=== PATIENT | male | born 1955 | race Caucasian/White ===

== ENCOUNTER → 2016-11-06 12:09 | Outpatient (CLI) | payer MEDICAID ==
[2016-11-07 08:25] LABS: ANION GAP 12.3 mmol/L (8-16); CALCIUM 9.1 mg/dL (8.5-10.1); CARBON DIOXIDE 28.7 mmol/L (21.0-32.0); CHOL - HDL RATIO 3.6 ratio (2.3-4.9); CREATININE - SERUM 1.1 mg/dL (0.6-1.3); LDL-HDL RATIO 1.2 ratio (1.5-3.5); MAGNESIUM - SERUM 2.3 mg/dL (1.8-2.4); T4 THYROXINE 6.7 ug/dL (4.7-13.3); THYROID STIMULATING HORMONE 1.13 uIU/mL (0.36-3.74)
== END | disposition home or self-care (01) ==
LOC: D.LAB 12:09
PROVIDERS: Chiropractor
DX: E78.5 Hyperlipidemia, unspecified (principal); R53.82 Chronic fatigue, unspecified

== ENCOUNTER → 2016-11-20 14:14 | Outpatient (CLI) | payer MEDICAID ==
[2016-11-20 15:24] LABS: HELICOBACTER PYLORI IGG NEGATIVE (NEGATIVE)
== END | disposition home or self-care (01) ==
LOC: D.LAB 14:14
PROVIDERS: Chiropractor
DX: R53.82 Chronic fatigue, unspecified (principal)

== ENCOUNTER → 2017-04-13 11:34 | Outpatient (CLI) | payer MEDICAID | END | disposition home or self-care (01) | LOC: D.RT 11:00 | DX: R06.02 Shortness of breath (principal) ==

== ENCOUNTER → 2019-02-26 10:30 | Outpatient (CLI) | payer MEDICARE ==
--- NOTE | 2019-03-03 09:50 | ST ---
PATIENT:MATIAS HAGEN MEDICAL RECORD: [id number] SEX: M LOCATION:[facility] ORDER #: ADMISSION DATE: 02/26/19 AGE OF PATIENT: 63 REFERRING PHYSICIAN: INTERPRETING PHYSICIAN: JENNIFER SCHUMACHER MD DATE OF SERVICE: 02/26/2019 PROCEDURE: Nuclear stress test. INDICATION: Angina, abnormal ECG, hypertension, and hyperlipidemia. He was exercised on standard Ulises protocol for 10 minutes achieving 100% max target heart rate response with 32 mCi of sestamibi injected at peak stress, 11 mCi used previously for rest images. FINDINGS: Gated SPECT reveals a decreased ejection fraction at 39% with decreased thickening and brightening throughout the inferior segment. SPECT imaging: Cardiolite was used as myocardial perfusion agent. There is a mixed perfusion defect inferiorly as well as laterally. This includes the basal, mid, apical, inferior segments, basal lateral, mid lateral segments. This is partially fixed, partially reversible. The amount of myocardium involved is large, the amount of reversibility is moderate. OVERALL IMPRESSION: 1. This is an intermediate risk to high risk abnormal nuclear stress test with reversible ischemia throughout the inferior and lateral distribution. 2. Gated SPECT reveals a decreased ejection fraction at 39%, would suggest cardiac catheterization as a followup study. TRANSINT:[id number] Voice Confirmation ID: [id number] DOCUMENT ID: [id number] JENNIFER SCHUMACHER MD at 0950 CC: CLYDE COYLE MD [id number] DICTATION DATE: 02/26/19 1642 CEMENT TESTER ASSISTANT: 02/27/19 0859 DEP CLI 02/26/19 [place] [id number] [place] [id number]
--- NOTE | 2019-03-03 14:16 | EC ---
PATIENT:MATIAS HAGEN DATE OF SERVICE: 02/26/19 SEX: M MEDICAL RECORD: [id number] DATE OF : [birth year] [facility] AGE OF PATIENT: 63 ADMISSION DATE: 02/26/19 REFERRING PHYSICIAN: INTERPRETING PHYSICIAN: ELA MORELOS MD ECHOCARDIOGRAM REPORT ECHO CHARGES 4 ECHO COMPLETE Date: 02/26/19 CLINICAL DIAGNOSIS: HTN/ABNORMAL STRESS ECHOCARDIOGRAPHIC MEASUREMENTS (adult normal given) AC root (d.<3.7cm) 4.4 cm LV Septum d (<1.2 cm> 1.2 cm Valve Excursion 2.6 cm LV Septum (systole) 1.7 cm Left Atria (s.<4.0cm> 4.5 cm LVPW d(<1.2cm) 1.3 cm RV (d.<2.3cm) 3.7 cm LVPW (sytole) 1.8 cm LV diastole(<5.6CM) 7.6 cm MV E-F(>70mm/sec) cm LV systole 5.3 cm LVOT Diameter 2.5 cm MV exc.(>10mm) cm Est.ejection fraction (50-75%) % DOPPLER: LVIT cm/sec A 31.0 cm/sec E 57.0 cm/sec LA cm/sec RVSP 32.0 mmHg LVOT 74.0 cm/sec AOP1/2T m/s Asc. Ao 117 cm/sec RVOT 54.0 cm/sec RA cm/sec PA 104 cm/sec AV Gradient Peak 5.5 mmHg AV Mean 2.9 mmHg AV Area 3.0 cm MV Gradient Peak 3.4 mmHg MV Mean 0.96 mmHg MV Area cm COMMENTS: OP - HC Casework Manager: 1 ROBERTO RONOE Recycling Operations Manager: 3 Dr. Garcia TAPE# PACS Pericardial Effusion N DATE OF SERVICE: Adequate 2-D echo, color-flow and spectral Doppler, and M-mode. Borderline LVH. LV internal dimension is normal. Wall motion is normal. EF is greater than or equal to 55%. Aortic valve is tricuspid. No evidence of stenosis by Doppler interrogation. Left atrium is dilated at 4.5 cm. Mitral valve shows no prolapse. Mild MR. Right-sided chambers are grossly normal. Trace TR. ECHOCARDIOGRAM REPORT [id number] MATIAS HAGEN TRANSINT:[id number] Voice Confirmation ID: [id number] DOCUMENT ID: [id number] ELA MORELOS MD at 1416 CC: [id number] DICTATION DATE: 02/27/19 1344 MASTER AUTOMOTIVE TECHNICIAN: 02/27/19 1533 [facility] CLI 02/26/19 [place] [id number] [place] [id number]
== END | disposition home or self-care (01) ==
LOC: D.HCCARDIO 10:30
PROVIDERS: ATTEND Internal Medicine Interventional Cardiology
DX: I10 Essential (primary) hypertension (principal)

== ENCOUNTER 2019-03-11 12:04 | Outpatient (CLI) | payer MEDICARE ==
[~2019-03-11] VITALS: Ht 198.1 cm; Wt 109.1 kg
--- NOTE | ~2019-03-11 | OP ---
PATIENT NAME: MATIAS HAGEN MEDICAL RECORD: [id number] :51 LOCATION:[facility] ADMISSION DATE: SURGEON: ELA MORELOS MD DATE OF OPERATION: 03/11/2019 PROCEDURE: Left heart catheterization, selective coronary angiography, right femoral artery approach. CATHETERS: A 5-German sheath, 5/4 left and right Robert, 5/4 pig. The procedure was well tolerated. The patient was returned to the sheikh. Sheath was removed. We proceeded immediately to DEPUTY REGISTER OF DEEDS. FINDINGS: Left ventriculography in 30-degree CERVANTES view: Normal wall motion and normal systolic function. CORONARY ANATOMY: LEFT MAIN: Left main is free of disease. LAD: Has discrete stenosis and it is just after the first diagonal. CIRCUMFLEX: Circumflex free of disease. RIGHT CORONARY ARTERY: Has an 80% stenosis in its mid portion. IMPRESSION AND PLAN: Staged intervention to LAD today, right at a later date. DESCRIPTION OF PROCEDURE: A 5-German was exchanged for a long 6-German sheath due to tortuosity of the iliac arteries. XB LAD guide catheter provided good guide catheter support followed by 300 cm Whisper wire placed across the tightly occluded LAD down this portion of the vessel. Stent deployed was a 3.5 x 50 mm Etters drug-eluting stent up to 14 atmospheres for 45 seconds. Final angiography shows excellent resolution of 80% stenosis with no significant residual. CARLOS flow was 3 throughout the procedure. IMPRESSION: SMALL BATTERY PLATE ASSEMBLER and stenting to the LAD. PLAN: Intervention to the right at a later date. TRANSINT:[id number] Voice Confirmation ID: [id number] DOCUMENT ID: [id number] ELA MORELOS MD CC: [id number] DICTATION DATE: 03/11/19 1516 DIAMOND SELECTOR: 03/11/19 1601 DEP CLI 03/11/19 [place] [id number] [place] [id number]
--- NOTE | ~2019-03-11 | HEMODYNAMI ---
PATIENT:MATIAS HAGEN MEDICAL RECORD: [id number] : 51 LOCATION:[facility] ADMISSION DATE: 03/11/19 Generatedon:03/11/201915:32 Patient name: MATIAS HAGEN Patient #: [id number] SSN: : 1955 Date of study: 03/11/2019 Page: Of Hemodynamic Procedure Report Patient Data Patient Demographics Procedure consent was obtained First Name: MATIAS Gender: Male Last Name: XIAO : 1955 [facility] Initial: GEETA Age: 63 year(s) Patient #: [id number] Race: Unknown Additional ID: [id number] Contact details Address: [address] [address] State: [place] City: [place] Zip code: [address] Past Medical History Allergies: No known allergies Admission Admission Data Admission Date: 03/11/2019 Admission Time: 12:04 Weight (lbs.): 240.31 Weight (kg.): 109 Lab Results Lab Result Date: 03/11/2019 Lab Result Time: 0:00 Biochemistry Name Units Result Min Max BUN mg/dl 17 --(---*)-- 7 18 Creatinine mg/dl 1 --(--*-)-- 0.6 1.3 eGFR ml/min 79.95109 *-(----)-- 90 120 NONAFRICAN CBC Name Units Result Min Max Hematocrit % 48.6 --(--*-)-- 42 54 Hemoglobin g/dl 16.8 --(---*)-- 13.5 17.5 Procedure Procedure Types Cath Procedure Diagnostic Procedure [facility] w/Coronaries Sedation Charges Moderate Sedation up to 15 minutes PCI Procedure Coronary Stent Coronary Stent Initial Procedure Description Procedure Date Procedure Date: 03/11/2019 Procedure Start Time: 14:44 Procedure End Time: 15:22 Procedure Staff Name Function Thee Carter RT Scrub Klaus Moody MD Performing Physician Mason Witt RN Nurse Carey Love RT Monitor Cely Liriano RT Scrub Procedure Data Cath Procedure Fluoroscopy Diagnostic fluoroscopy Total fluoroscopy Time: 6 time: 6 min min Diagnostic fluoroscopy Total fluoroscopy dose: dose: 1100 mGy 1100 mGy Contrast Material Contrast Material Type Amount (ml) Isovue 300 126 Entry Location Entry Primary Successful Side Size Upsize Upsize Entry Closure Succes sful Closure Location (Fr) 1 (Fr) 2 (Fr) Remarks Device Remarks Radial Right 6 Fr artery Short Femoral Right 5 Fr 6 Fr Exoseal artery Long Estimated blood loss: 10 ml Diagnostic catheters Device Type Used For End Catheter Placement DIAGNOSTIC [place] 110cm 5 Procedure Fr catheter ([id number]) MULTIPACK JL 4.0 5Fr Procedure catheter MULTIPACK 3DRC 5Fr Procedure catheter DIAGNOSTIC AR MOD 5Fr Procedure Catheter ([id number]) MULTIPACK Pigtail 5 Fr Procedure catheter Procedure Complications No complications Procedure Medications Medication Administration Route Dosage 0.9% NaCl I.V. 100 ml/hr Oxygen etCO2 Nasal cannula 2 l/min Heparin Flush Bag added to field 2 bags (1000units/500ml NS) Lidocaine 2% added to field 20 Radial Cocktail added to field 1 syringe (Verapamil 2mg/Nitro 400mcg/Heparin 1500units) Versed I.V. 2 mg Fentanyl I.V. 100 mcg Radial Cocktail I.A. 1 syringe (Verapamil 2mg/Nitro 400mcg/Heparin 1500units) Versed I.V. 2 mg Fentanyl I.V. 50 mcg Heparin Bolus I.V. 5000 units Integrilin (Bolus I.V. 9.5 ml 2mg/ml) Integrilin (Bolus wasted 0.5 ml 2mg/ml) Fentanyl I.V. 50 mcg Plavix P.O. 600 mg Zofran I.V. 4 mg Hemodynamics Rest HGB: 16.8 (g/dl) Heart Rate: 72 (bpm) Pressure Samples Time Site Value (mmHg) Purpose Heart Use Rate(bpm) 14:58 LV 123/6,8 Snapshot 60 14:59 LV 125/7,9 Snapshot 59 Gradients Valve Time Site Site Mean SEP/DFP Peak To Heart Use 1 2 (mmHg) (sec/min) Peak Rate (mmHg) (bpm) Aortic 14:59 LV AO 59 Snapshots Pre Cath Intra NCS Post Cath Vital Signs Time Heart Resp SPO2 etCO2 NIBP (mmHg) Rhythm Pain Sedation Rate (ipm) (%) (mmHg) Status Level (bpm) 14:32:23 73 10 100 0 147/89(120) NSR 0 (11) 10(A) , No pain 14:36:37 65 17 100 35.2 132/81(116) NSR 0 (11) 10(A) , No pain 14:40:44 60 14 100 40.4 136/83(113) NSR 0 (11) 10(A) , No pain 14:44:56 56 20 100 38.9 136/76(96) NSR 0 (11) 10(A) , No pain 14:49:10 70 19 97 41.2 117/72(91) NSR 0 (11) 10(A) , No pain 14:53:14 61 15 95 38.2 126/76(98) NSR 0 (11) 10(A) , No pain 14:57:24 57 18 98 41.9 125/74(102) NSR 0 (11) 10(A) , No pain 15:01:34 57 16 99 41.9 128/71(92) NSR 0 (11) 10(A) , No pain 15:05:44 58 11 99 37.4 125/75(98) NSR 0 (11) 10(A) , No pain 15:09:52 61 15 99 19.4 120/76(96) NSR 0 (11) 10(A) , No pain 15:13:57 58 18 98 42.6 124/77(98) NSR 0 (11) 10(A) , No pain 15:18:05 56 10 100 21.7 120/79(99) NSR 0 (11) 10(A) , No pain 15:22:07 60 9 31.4 124/84(107) NSR 0 (11) 10(A) , No pain Medications Time Medication Route Dose Verified Delivered Reason Not es Effectiveness by by 14:32:04 0.9% NaCl I.V. 100 Mason Mason Per physician ml/hr Eduar Witt RN RN 14:32:14 Oxygen etCO2 2 l/min Mason Mason for low 02 sats Nasal Eduar Witt cannula RN RN 14:32:24 Heparin Flush added 2 bags Mason Mason used for Bag to Eduar Witt procedure (1000units/500ml field RN RN NS) 14:32:34 Lidocaine 2% added 20ml Mason Mason for local to vial Lorigan Lorigan anesthetic field HAYWOOD RN 14:32:43 Radial Cocktail added 1 Mason Mason used for (Verapamil to syringe Lorigan Lorigan procedure 2mg/Nitro field HAYWOOD RN 400mcg/Hepari 14:44:15 Versed I.V. 2 mg Mason Mason for sedation Eduar Witt RN RN 14:44:23 Fentanyl I.V. 100 mcg Mason Mason for sedation Eduar Witt RN RN 14:46:06 Radial Cocktail I.A. 1 Mason Klaus for (Verapamil syringe Lorigan Fransisco vasodilation 2mg/Nitro CHASTITY MARIN 400mcg/Hepari 14:46:19 Versed I.V. 2 mg Mason Mason for sedation Eduar Witt RN RN 14:46:26 Fentanyl I.V. 50 mcg Mason Mason for sedation Eduar Witt RN RN 14:59:29 Heparin Bolus I.V. 5000 Mason Mason for units Eduar Witt anticoagulation RN RN 15:00:35 Integrilin I.V. 9.5 ml Mason Mason for (Bolus 2mg/ml) Eduar Witt antiplatelet RN RN therapy 15:00:46 Integrilin wasted 0.5 ml Mason Mason to sharp's (Bolus 2mg/ml) Eduar Witt RN RN 15:03:04 Fentanyl I.V. 50 mcg Mason Mason for sedation Eduar Witt RN RN 15:12:43 Plavix P.O. 600 mg Mason Mason for Eduar Witt antiplatelet RN RN therapy 15:29:47 Zofran I.V. 4 mg Mason Mason for nausea Eduar Witt RN sustainable systems analyst Log Time Note 14:18:21 Mason Witt RN sent for patient. Start room use. 14:18:22 Diagnostic Cath status Elective 14:18:23 Time tracking: Regular hours (M-F 7:00 - 5:00) 14:18:27 Plan of Care:Hemodynamics will remain stable., Cardiac rhythm will remain stable., Comfort level will be maintained., Respiratory function will remain adequate., Patient/ family verbilizes understanding of procedure., Procedure tolerated without complication., Recovers from procedure without complications.. 14:18:29 Signed procedure consent form obtained from patient. 14:21:51 Patient Weight : 240.31 lbs 14:22:03 Patient allergic to No known allergies 14::34 Lab Result : Hemoglobin 16.8 g/dl 14::34 Lab Result : Hematocrit 48.6 % 14::34 Lab Result : eGFR NONAFRICAN 79.42427 ml/min 14::34 Lab Result : BUN 17 mg/dl 14::34 Lab Result : Creatinine 1 mg/dl 14:23:13 Patient received from Pre/Post Procedure Room to CCL 2 Alert and oriented. Tansferred to table in Supine position. 14:23:14 Correct patient and procedure confirmed by team. 14:23:14 Warm blankets applied, and bennett hugger turned on for patient comfort. 14:23:15 ECG and BP/O2 sat monitors applied to patient. 14:31:19 Vital chart was started 14:32:04 0.9% NaCl 100 ml/hr I.V. was administered by Mason Witt RN; Per physician; 14:32:14 Oxygen 2 l/min etCO2 Nasal cannula was administered by Mason Witt RN; for low 02 sats; 14:32:24 Heparin Flush Bag (1000units/500ml NS) 2 bags added to field was administered by Mason Witt RN; used for procedure; 14:32:34 Lidocaine 2% 20ml vial added to field was administered by Mason Witt RN; for local anesthetic; 14:32:43 Radial Cocktail (Verapamil 2mg/Nitro 400mcg/Heparin 1500units) 1 syringe added to field was administered by Mason Witt RN; used for procedure; 14:34:37 Baseline sample Acquired. 14:34:40 Rhythm: sinus rhythm 14:34:41 Full Disclosure recording started 14:34:47 Pre-procedure instructions explained to patient. 14:34:47 H&P Date Dictated: 03/05/2019 Within 30 days and on chart., H&P Addendum completed by physician on day of procedure. (MUST COMPLETE FOR ALL OUTPATIENTS). 14:34:48 Pre-op teaching completed and patient verbalized understanding. 14:34:49 Family in patients room. 14:34:51 Patient NPO since Midnight. 14:34:53 Is patient on blood thinner?No 14:34:57 Patient diabetic? No. 14:35:02 Previous problem with sedation/anesthesia? No ? 14:35:03 Snore? Yes 14:35:04 Sleep apnea? Yes 14:35:05 Opens mouth fully? Yes 14:35:05 Deviated septum? No 14:35:07 Sticks out tongue? Yes 14:35:09 Airway obstruction? No ? 14:35:11 Dentures? No ? 14:35:13 Pre procedure: right dorsailis pedis pulse 2+ Normal; easily identifiable; not easily obliterated 14:35:20 Modified Julius's test Ulnar < 7 seconds 14:35:26 Patient pain scale 0/10 ?. 14:35:30 IV patent on arrival in left hand with 0.9% NaCl at [facility]. 14:35:33 Lab results completed and on chart. 14:35:35 Right Radial & Right Groin area was prepped with chlora-prep and draped in sterile fashion 14:35:36 Sharps counted by scrub and verified by R.N. 14:35:36 Alarms reviewed by R. N. 14:35:39 Use device set Radial Dx or PCI 14:35:41 ACIST Syringe (09323) opened to sterile field. 14:35:42 Bag Decanter (2002S) opened to sterile field. 14:35:43 Tegaderm 4 x 4 (1626W) opened to sterile field. 14:35:43 ACIST Manifold (64872) opened to sterile field. 14:35:43 ACIST Hand Control (19568) opened to sterile field. 14:35:46 Medline Cath Pack ([id number]) opened to sterile field. 14:35:47 MBrace Wrist Support ([id number]) opened to sterile field. 14:35:50 EMERALD Guide Wire (270-116) opened to sterile field. 14:35:50 SHEATH 6FR Slender (75-5461) opened to sterile field. 14:43:22 Final Timeout: patient, procedure, and site verified with staff and physician. All members of the team are in agreement. 14:43:22 --------ALL STOP TIME OUT------ 14:43:23 Right Radial & Right Groin site verified by team. 14:43:26 Fire Safety Assessment: A--An alcohol-based skin anteseptic being used preoperatively., C--Open oxygen or nitrous oxide is being used., D--An ESU, laser, or fiber-optic light is being used. 14:43:28 Physical assessment completed. ASA score P 2 - A patient with mild systemic disease as per Klaus Moody MD. 14:43:45 2) 60-89 Mildly reduced kidney function, and other findings (as for stage 1) point to kidney disease. 14:43:51 Maximum allowable contrast does (3.7 X eGFR X 0.75)222 ml. 14:43:54 Sedation plan: IV Moderate Sedation Medication:Versed, Fentanyl 14:44:15 Versed 2 mg I.V. was administered by Mason Witt RN; for sedation; 14:44:19 Procedure started. 14:44:23 Fentanyl 100 mcg I.V. was administered by Mason Witt RN; for sedation; 14:44:37 Local anesthetic to right radial artery with Lidocaine 2% by Klaus Moody MD.INITIAL ACCESS ONLY 14:45:03 A 6 Fr Short sheath was inserted into the Right Radial artery 14:46:06 Zero performed for pressure channel P1 14:46:06 Radial Cocktail (Verapamil 2mg/Nitro 400mcg/Heparin 1500units) 1 syringe I.A. was administered by Klaus Moody MD; for vasodilation; 14:46:19 Versed 2 mg I.V. was administered by Mason Witt RN; for sedation; 14:46:26 Fentanyl 50 mcg I.V. was administered by Mason Witt RN; for sedation; 14:46:28 A DIAGNOSTIC [place] 110cm 5 Fr catheter (310605) was advanced over the wire and used for Procedure. 14:47:22 GLIDE WIRE ANGLE 260cm (AF7134) opened to sterile field. 14:49:04 UNABLE TO ENGAGE CATH AROUND AORTA. WILL PROCEED TO FEMORAL 14:49:21 SHEATH 5FR [place] (INZ787) opened to sterile field. 14:49:25 Use device set Multipack Set 14:49:27 DIAGNOSTIC Multipack 5Fr catheter set (LQ7310) opened to sterile field. 14:49:35 Local anesthetic to right femoral artery with Lidocaine 2% by Klaus Moody MD.ADDITIONAL ACCESS 14:50:27 A 5 Fr sheath was inserted into the Right Femoral artery 14:52:00 A MULTIPACK JL 4.0 5Fr catheter was advanced over the wire and used for Procedure. 14:52:55 LCA angiography performed. 14:52:57 Catheter removed. 14:53:30 A MULTIPACK 3DRC 5Fr catheter was advanced over the wire and used for Procedure. 14:54:59 Catheter removed. 14:55:20 SHEATH 6FR [place] (AUK997) opened to sterile field. 14:55:21 WHISPER 300cm guide wire ([id number]) opened to sterile field. 14:55:21 INFLATOR Merit BasixCompak (YP7549) opened to sterile field. 14:56:04 SHEATH 6FR Brite Tip 35cm (835590I) opened to sterile field. 14:56:05 Sheath upsized to a 6 Fr Long. 14:56:24 A DIAGNOSTIC AR MOD 5Fr Catheter ([id number]) was advanced over the wire and used for Procedure. 14:58:05 RCA angiography performed. 14:58:08 Catheter removed. 14:58:17 A MULTIPACK Pigtail 5 Fr catheter was advanced over the wire and used for Procedure. 14:58:30 LV gram done using CERVANTES 14:58:32 Injector settings: Ml/sec: 10, Volume: 20, 14:59:15 LV hemodynamics recorded. 14:59:18 EF : 50 % 14:59:29 Heparin Bolus 5000 units I.V. was administered by Mason Witt RN; for anticoagulation; 15:00:00 Catheter removed. 15:00:24 GUIDE 6FR XBLAD 4.0 catheter ([id number]) opened to sterile field. 15:00:35 Integrilin (Bolus 2mg/ml) 9.5 ml I.V. was administered by Mason Witt RN; for antiplatelet therapy; 15:00:46 Integrilin (Bolus 2mg/ml) 0.5 ml wasted was administered by Mason Witt RN; to sharp's; 15:01:14 6 Fr XBLAD 4 guide catheter was inserted over the wire 15:02:55 WHISPER 300 wire advanced. 15:03:04 Fentanyl 50 mcg I.V. was administered by Mason Witt RN; for sedation; 15:04:20 Wire advanced across lesion. 15:05:25 Place stent Inflation Number: 1 A CAM OTW 3.5 x 18 stent ([id number]) was prepped and advanced across the Mid LAD . The stent was deployed at 12 GRISEL for 0:15 (min:sec) . 15:05:41 Stent catheter was removed intact over wire. 15:05:42 Guide catheter removed. 15:05:42 Wire removed. 15:06:15 LONG SHEATH EXCHANGED FOR SHORT SHEATH 15:06:37 EXOSEAL 6Fr (EX600) opened to sterile field. 15:07:31 TR BAND Standard ([id number]) opened to sterile field. 15:08:24 Sheath removed intact; hemostasis achieved with Exoseal to the Right Femoral artery. 15:08:56 Procedure ended.(Physican Out) 15:10:13 Fluoroscopy time 06.00 minutes. 15:10:17 Fluoroscopy dose: 1100 mGy 15:10:17 Flurop Dose total: 1100 15:10:20 Contrast amount:Isovue 300 126ml. 15:10:21 Sharps counted by scrub and verified by R.N. 15:10:24 Post-op/insertion site Right Femoral artery dressed using a 4 x 4 and Tegaderm. 15:10:56 Post-procedure physical assessment completed. ASA score P 2 - A patient with mild systemic disease as per Klaus Moody MD. 15:10:59 Post procedure rhythm: sinus bradycardia 15:12:12 Estimated blood loss: 10 ml 15:12:19 Patient needs reinforcement of post procedure teaching. 15:12:19 Post procedure instruction explained to patient.Patient verbalizes understanding. 15:12:43 Plavix 600 mg P.O. was administered by Mason Witt RN; for antiplatelet therapy; 15:13:04 Procedure type changed to Cath procedure, Diagnostic procedure, LHC, LHC w/Coronaries, Sedation Charges, Moderate Sedation up to 15 minutes, PCI procedure, Coronary Stent, Coronary Stent Initial 15:16:45 TR band inflated with 11cc of air. 15:16:50 FEMSTOP Gold (M30702) opened to sterile field. 15:16:58 Femstop placed over the right femoral artery at 140 mmHg. Hemostasis achieved. 15:20:17 Procedure and supply charges have been captured, reviewed, submitted and are correct. 15:20:20 Procedure Complication : No complications 15:22:32 See physician's report for complete and final results. 15:22:32 Vital chart was stopped 15:22:34 Report given to Pre/Post Procedure Room. 15:22:36 Patient transfered to Pre/Post Procedure Room with Bed. 15:22:37 Full Disclosure recording stopped 15:22:37 Procedure ended. 15:22:41 End room use (Document Last) 15:29:47 Zofran 4 mg I.V. was administered by Mason Witt RN; for nausea; Intervention Summary Intervention Notes Time ActionType Lesion and Equipment Action# Pressure Duration Attributes Used 15:05:25 Place stent Mid LAD CAM OTW 3.5 1 12 00:15 x 18 stent ([id number]) Device Usage Item Name Manufacture Quantity Catalog Hospital Part Current Mini mal Lot# / Number Charge Number Stock Stock Serial# Code ACIST Syringe Acist 1 85527 644252 188933 292054 20 (07447) Medical Systems Inc Bag Decanter Microtek 1 2001S 574720 87954 871838 5 (2001S) Medical Inc. ACIST Hand Acist 1 54040 242507 247678 274989 5 Control Medical (76765) Systems Inc ACIST Acist 1 81032 269551 135982 126446 5 Manifold Medical (84498) Systems Inc Tegaderm 4 x 3M 1 1626W 601686 844740 106039 5 4 (1626W) Medline Cath Medline 1 [id number] 412941 19791 532729 5 Pack (GUMD93285) MBrace Wrist Advanced 1 140-0250-00 471579 45284 544875 5 Support Vascular (882798111) Dynamics SHEATH 6FR Terumo 1 [id number] 326412 264488 556407 5 Slender (80-1060) EMERALD Guide Cardinal 1 502-455 072432 082530 397282 5 Wire Health (502-455) DIAGNOSTIC Terumo 1 40-5013 695231 370621 222204 5 [place] 110cm 5 Fr catheter (424491) GLIDE WIRE Terumo 1 OD0917 771867 697404 748080 5 ANGLE 260cm (PT3961) SHEATH 5FR Terumo 1 MTF031 731774 905569 985171 5 [place] (CZY945) DIAGNOSTIC Cardinal 1 RU0893 854036 18812 694035 30 Multipack 5Fr Health catheter set (TQ3620) MULTIPACK JL Cardinal 1 969201 5 4.0 5Fr Health catheter MULTIPACK Cardinal 1 773581 5 3DRC 5Fr Health catheter SHEATH 6FR Terumo 1 ZLF976 406114 359198 619074 40 [place] (YMZ392) INFLATOR Merit 1 EC2103 034379 274165 174851 15 [facility] Medical BasixCompak (PR8315) WHISPER 300cm Pack 1 [id number] 526975 524066 002616 5 guide wire Vascular (2900943VZ) DIAGNOSTIC AR Cardinal 1 743484F 406352 375390 353925 15 MOD 5Fr Health Catheter (155649J) MULTIPACK Cardinal 1 182969 5 Pigtail 5 Fr Health catheter SHEATH 6FR Cardinal 1 172371Y 991872 800958 683657 1 Brite Tip Health 35cm (385430N) GUIDE 6FR Cardinal 1 58533420 994193 791603 427003 3 XBLAD 4.0 Health catheter (14713498) CAM OTW 3.5 Medtronic 1 [id number] 427833 0515082 870970 5 [id number] x 18 stent ([id number]) EXOSEAL 6Fr Cardinal 1 EX600 962921 128131 059436 10 (EX600) Health TR BAND Terumo 1 [id number] 196143 289044 542546 40 Standard (ULQ94TGD) FEMSTOP Gold [facility] 1 L40851 234560 342801 900709 5 (M20309) Signature Audit Bedias Stage Time Signature Unsigned Intra-Procedure 03/11/2019 Carey Love RT(R) 3:22:52 PM RT(R) 03/11/2019 3:29:05 PM Intra-Procedure 03/11/2019 Carey Love 3:32:09 PM RT(R) Signatures Monitor : Carey Love Signature : RT Date : Time : [facility] [address] [place] [address]
[2019-03-11] MEDS ORDERED: AMBIEN10 MG PO (12:23)
[2019-03-11] MEDS ORDERED: ADCIRCA20 MG PO (12:24)
[2019-03-11] MEDS ORDERED: NORVASC5 MG PO (12:24)
[2019-03-11] MEDS ORDERED: LISINOPRIL10 MG PO (12:25)
[2019-03-11] MEDS ORDERED: BAYER CHEWABLE81 MG PO (12:25)
[2019-03-11] MEDS ORDERED: REGLAN5 MG PO (12:26)
[2019-03-11] MEDS ORDERED: CETIRIZINE HCL5 MG PO (12:26)
[2019-03-11] MEDS ORDERED: XANAX0.5 MG PO (12:27)
[2019-03-11] MEDS ORDERED: ELAVIL10 MG PO (12:27)
[2019-03-11 12:40] LABS: BASOPHILS 0.5 % (0-2); EOSINOPHILS 0 % (0-7); HEMATOCRIT 48.6 % (42.0-54.0); HEMOGLOBIN 16.8 g/dL (13.5-17.5); IMMATURE GRANULOCYTES 0.2 % (0-5); LYMPHOCYTES 16.2 % (15-50); MCH 30.7 pg (26.0-34.0); MCHC 34.6 g/dL (31.0-37.0); MCV 88.8 fL (80.0-100.0); MEAN PLATELET VOLUME 11.1 fL (7.4-10.4); MONOCYTES 10.5 % (2-11); NEUTROPHILS 72.6 % (40-80); PLATELET COUNT 182 10x3/uL (130-400); RBC 5.47 10x6/uL (4.20-6.10); RDW 12.8 % (11.5-14.5); WBC 6.5 10x3/uL (4.8-10.8)
[2019-03-11 12:41] VITALS: BP 149/84; Ht 198.1 cm; Wt 109.1 kg
[2019-03-11 12:48] LABS: CALC OSMOLALITY 279 mosm/kg (275-300); CALCIUM 9.1 mg/dL (8.5-10.1); CARBON DIOXIDE 27.1 mmol/L (21.0-32.0); CHLORIDE - SERUM 104 mmol/L (98-107); GLUCOSE 98 mg/dL (74-106); SODIUM 139 mmol/L (136-145); UREA NITROGEN 17 mg/dL (7-18); eGFR NON AFRICAN AMERICAN 80 mL/min (90-120)
[2019-03-11] MEDS ORDERED: PLAVIX75 MG PO (15:39)
--- NOTE | 2019-03-11 15:55 | NUR ---
2L NC, NO RESP DISTRESS. RIGHT WRIST TR BAND AND RIGHT GROIN 6F EXOSEAL CDI, NO BLEEDING OR HEMATOMA NOTED. FEMSTOP @ 125 TO RIGHT GROIN FOR PRECAUTION. NO C/O PAIN OR NAUSEA. VSS. FAMILY AT BEDSIDE, CALL LIGHT WITHIN REACH.
--- NOTE | 2019-03-11 16:40 | NUR ---
FEMSTOP PRESSURE DECREASED BY 25 WITH NO BLEEDING NOTED. VSS. WILL CONTINUE TO MONITOR CLOSELY.
--- NOTE | 2019-03-11 17:05 | NUR ---
FEMSTOP PRESSURE DECREASED BY 25 WITH NO BLEEDING NOTED.
--- NOTE | 2019-03-11 17:20 | NUR ---
RIGHT WRIST TR BAND CDI, NO BLEEDING NOTED. FEMSTOP PRESSURE DECREASED BY 40 WITH NO BLEEDING. VSS. CALL LIGHT WITHIN REACH.
--- NOTE | 2019-03-11 17:45 | NUR ---
REMAINING PRESSURE REMOVED FROM FEMSTOP WITH NO BLEEDING NOTED. DRESSING PLACED TO SITE. VSS. WILL CONTINUE TO MONITOR CLOSELY.
--- NOTE | 2019-03-11 18:00 | NUR ---
HOB ELEVATED 30 DEGREES. RIGHT GROIN 6F EXOSEAL CDI. 4CC OF AIR REMOVED FROM TR BAND WITH NO BLEEDING NOTED. VSS. CALL LIGHT WITHIN REACH.
--- NOTE | 2019-03-11 18:20 | NUR ---
4CC OF AIR REMOVED FROM TR BAND WITH NO BLEEDING NOTED.
--- NOTE | 2019-03-11 18:45 | NUR ---
LEFT PIV D/C'D WITH CATHETER INTACT, BAND AID TO SITE. UP TO BEDSIDE TO GET DRESSED. AMBULATED TO RESTROOM.
--- NOTE | 2019-03-11 18:52 | NUR ---
REMAINING AIR REMOVED FROM TR BAND WITH NO BLEEDING NOTED. DRESSING PLACED TO SITE. DISCHARGE INSTRUCTIONS ALONG WITH PLAVIX PRESCRIPTION GIVEN TO TO PT AND FAMILY MEMBER. BOTH VERBALIZED UNDERSTANDING.
--- NOTE | 2019-03-11 19:00 | NUR ---
TAKEN OUT VIA WHEELCHAIR BY CATH TANK FILLER. LEFT FACILITY WITH FAMILY AND ALL PERSONAL BELONGINGS.
== END 2019-03-11 19:00 | disposition home or self-care (01) ==
LOC: D.CATH 12:04
PROVIDERS: ATTEND Internal Medicine Interventional Cardiology
DX: I25.119 Atherosclerotic heart disease of native coronary artery with unspecified angina pectoris (principal); Z01.812 Encounter for preprocedural laboratory examination
CPT/HCPCS: 93458; C9600

== ENCOUNTER 2019-03-25 11:59 | Outpatient (CLI) | payer MEDICARE ==
[2019-03-25] VITALS (7 sets, daily range): BP systolic 98–144; BP diastolic 57–88; Ht 198.1 cm; Wt 109.7 kg
[~2019-03-25] VITALS: Ht 198.1 cm; Wt 109.7 kg
--- NOTE | ~2019-03-25 | HEMODYNAMI ---
PATIENT:MATIAS HAGEN MEDICAL RECORD: [id number] : 51 LOCATION:D.CAT ADMISSION DATE: 03/25/19 Generatedon:03/25/201915:23 Patient name: MATIAS HAGEN Patient #: [id number] SSN: : 1955 Date of study: 03/25/2019 Page: Of Hemodynamic Procedure Report Patient Data Patient Demographics Procedure consent was obtained First Name: MATIAS Gender: Male Last Name: XIAO : 1955 [facility] Initial: GEETA Age: 63 year(s) Patient #: [id number] Race: Unknown Additional ID: [id number] Contact details Address: [facility] [address] State: [place] City: [place] Zip code: [address] Past Medical History Allergies: No known allergies Admission Admission Data Admission Date: 03/25/2019 Admission Time: 11:59 Admit Source: Other Lab Results Lab Result Date: 03/25/2019 Lab Result Time: 12:30 Biochemistry Name Units Result Min Max BUN mg/dl 16 --(---*)-- 7 18 Creatinine mg/dl 0.9 --(-*--)-- 0.6 1.3 CBC Name Units Result Min Max Hematocrit % 46.2 --(-*--)-- 42 54 Hemoglobin g/dl 16.3 --(--*-)-- 13.5 17.5 Procedure Procedure Types Cath Procedure PCI Procedure Coronary Stent Coronary Stent Initial Procedure Description Procedure Date Procedure Date: 03/25/2019 Procedure Start Time: 15:06 Procedure End Time: 15:22 Procedure Staff Name Function Klaus Moody MD Performing Physician Guzman Borrego RT Monitor Thee Carter RT Scrub Cely Liriano RT Scrub Mason Witt RN Nurse Procedure Data Cath Procedure Fluoroscopy Diagnostic fluoroscopy Total fluoroscopy Time: 1.5 time: 1.5 min min Diagnostic fluoroscopy Total fluoroscopy dose: 283 dose: 283 mGy mGy Contrast Material Contrast Material Type Amount (ml) Isovue 300 30 Entry Location Entry Primary Successful Side Size (Fr) Upsize Upsize Entry Closure S uccessful Closure Location 1 (Fr) 2 (Fr) Remarks Device Remarks Femoral Left 6 Fr 6 Fr Exoseal artery Mid-Length Short Estimated blood loss: 10 ml Procedure Complications No complications Procedure Medications Medication Administration Route Dosage 0.9% NaCl I.V. 100 ml/hr Oxygen etCO2 Nasal cannula 2 l/min Heparin Flush Bag added to field 2 bags (1000units/500ml NS) Lidocaine 2% added to field 20 Versed I.V. 2 mg Fentanyl I.V. 100 mcg Fentanyl I.V. 100 mcg Versed I.V. 2 mg Versed I.V. 1 mg Heparin Bolus I.V. 5000 units Hemodynamics Rest HGB: 16.3 (g/dl) Heart Rate: 59 (bpm) Snapshots Pre Cath Intra NCS Post Cath Vital Signs Time Heart Resp SPO2 etCO2 NIBP (mmHg) Rhythm Pain Sedation Rate (ipm) (%) (mmHg) Status Level (bpm) 14:45:40 62 14 98 0 147/42(56) NSR 0 (11) 10(A) , No pain 14:50:04 58 14 99 42.9 146/86(107) NSR 0 (11) 10(A) , No pain 14:54:02 56 17 98 42.1 144/82(109) NSR 0 (11) 10(A) , No pain 14:58:00 56 14 98 39.1 149/84(106) NSR 0 (11) 10(A) , No pain 15:01:59 56 17 98 34.5 142/83(98) NSR 0 (11) 10(A) , No pain 15:05:57 53 22 97 42.9 137/81(101) NSR 0 (11) 9(A) , No pain 15:10:31 57 14 96 28.6 147/89(110) NSR 0 (11) 9(A) , No pain 15:14:29 59 13 96 0 143/88(110) NSR 0 (11) 10(A) , No pain 15:19:01 61 12 97 45.1 140/87(103) NSR 0 (11) 10(A) , No pain Medications Time Medication Route Dose Verified Delivered Reason Notes Effectiveness by by 14:48:46 0.9% NaCl I.V. 100 Mason Mason Per physician ml/hr Eduar Witt RN RN 14:48:57 Oxygen etCO2 2 Mason Mason for low 02 sats Nasal l/min Eduar Witt cannula RN RN 14:49:12 Heparin Flush added 2 Mason Mason used for Bag to bags Eduar Witt procedure (1000units/500ml field RN RN NS) 14:49:23 Lidocaine 2% added 20ml Mason Mason for local to vial Eduar Witt anesthetic field RN RN 14:56:15 Versed I.V. 2 mg Mason Mason for sedation Eduar Witt RN RN 14:56:24 Fentanyl I.V. 100 Mason Mason for sedation mcg Eduar Witt RN RN 15:03:25 Fentanyl I.V. 100 Mason Mason for sedation mcg Eduar Witt RN RN 15:03:30 Versed I.V. 2 mg Mason Mason for sedation Eduar Witt RN RN 15:08:22 Versed I.V. 1 mg Mason Mason for sedation Eduar Witt RN RN 15:10:52 Heparin Bolus I.V. 5000 Mason Mason for units Eduar Witt anticoagulation RN cash posting clerk Log Time Note 14:15:20 Mason Witt RN sent for patient. Start room use. 14:39:01 Admit Source: Other 14:39:18 Procedure Status PCI. 14:39:25 Time tracking: Regular hours (M-F 7:00 - 5:00) 14:39:28 Plan of Care:Hemodynamics will remain stable., Cardiac rhythm will remain stable., Comfort level will be maintained., Respiratory function will remain adequate., Patient/ family verbilizes understanding of procedure., Procedure tolerated without complication., Recovers from procedure without complications.. 14:39:32 Patient received from Pre/Post Procedure Room to CCL 2 Alert and oriented. Tansferred to table in Supine position. 14:39:33 Warm blankets applied, and bennett hugger turned on for patient comfort. 14:39:35 Signed procedure consent form obtained from patient. 14:39:35 Correct patient and procedure confirmed by team. 14:39:36 ECG and BP/O2 sat monitors applied to patient. 14:39:37 Pre-procedure instructions explained to patient. 14:39:37 Pre-op teaching completed and patient verbalized understanding. 14:39:41 H&P Date Dictated: 03/25/2019 New H&P dictated by physician.. 14:43:51 Vital chart was started 14:43:52 Baseline sample Acquired. 14:43:58 Rhythm: sinus bradycardia 14:44:00 Full Disclosure recording started 14:44:03 Family in patients room. 14:44:04 Patient NPO since Midnight. 14:44:11 Is the patient allergic to Iodine/contrast media? No. 14:46:13 Is patient on blood thinner?Yes 14:46:17 ACC The patient was administered the following blood thiners within the last 24 hours: ACCPlavix 14:46:21 Patient diabetic? No. 14:46:25 Previous problem with sedation/anesthesia? No ? 14:46:26 Snore? Yes 14:46:26 Sleep apnea? Yes 14:46:27 Deviated septum? No 14:46:28 Opens mouth fully? Yes 14:46:29 Sticks out tongue? Yes 14:46:30 Airway obstruction? No ? 14:46:32 Dentures? No ? 14:46:36 Pre procedure: left dorsailis pedis pulse 2+ Normal; easily identifiable; not easily obliterated 14:46:37 Patient pain scale 0/10 ?. 14:46:42 IV patent on arrival in left forearm with 0.9% NaCl at [facility]. 14:48:03 Lab Result : BUN 16 mg/dl 14:48:03 Lab Result : Creatinine 0.9 mg/dl 14:48:03 Lab Result : Hematocrit 46.2 % 14:48:03 Lab Result : Hemoglobin 16.3 g/dl 14:48:06 Lab results completed and on chart. 14:48:08 Left groin area was prepped with chlora-prep and draped in sterile fashion 14:48:09 Alarms reviewed by R. N. 14:48:09 Sharps counted by scrub and verified by R.N. 14:48:12 ACIST Syringe (92829) opened to sterile field. 14:48:13 Bag Decanter (2002S) opened to sterile field. 14:48:13 Medline Cath Pack ([id number]) opened to sterile field. 14:48:14 ACIST Hand Control (16854) opened to sterile field. 14:48:14 ACIST Manifold (44502) opened to sterile field. 14:48:15 Tegaderm 4 x 4 (1626W) opened to sterile field. 14:48:17 EMERALD Guide Wire (125-980) opened to sterile field. 14:48:46 0.9% NaCl 100 ml/hr I.V. was administered by Mason Witt RN; Per physician; 14:48:57 Oxygen 2 l/min etCO2 Nasal cannula was administered by Mason Witt RN; for low 02 sats; 14:49:12 Heparin Flush Bag (1000units/500ml NS) 2 bags added to field was administered by Mason Witt RN; used for procedure; 14:49:23 Lidocaine 2% 20ml vial added to field was administered by Mason Witt RN; for local anesthetic; 14:52:06 SHEATH 6FR Brite Tip 35cm ([id number]) opened to sterile field. 14:52:15 WHISPER 300cm guide wire ([id number]) opened to sterile field. 14:52:16 SHEATH 6FR Anderson (UMM174) opened to sterile field. 14:52:21 EXOSEAL 6Fr (EX600) opened to sterile field. 14:55:02 Physician arrived 14:55:02 --------ALL STOP TIME OUT------ 14:55:02 Final Timeout: patient, procedure, and site verified with staff and physician. All members of the team are in agreement. 14:55:04 Left groin site verified by team. 14:55:06 Fire Safety Assessment: A--An alcohol-based skin anteseptic being used preoperatively., C--Open oxygen or nitrous oxide is being used., D--An ESU, laser, or fiber-optic light is being used. 14:55:10 INFLATOR Merit BasixCompak (IG7056) opened to sterile field. 14:55:11 Physical assessment completed. ASA score P 2 - A patient with mild systemic disease as per Klaus Moody MD. 14:55:13 1) 90+ Normal kidney functon but urine findings or structural abnormalities or genetic trait point to kidney disease. 14:55:16 Maximum allowable contrast does (3.7 X eGFR X 0.75)250 ml. 14:55:19 Sedation plan: IV Moderate Sedation Medication:Versed, Fentanyl 14:55:26 GUIDE 6FR AR 2.0 catheter ([id number]) opened to sterile field. 14:56:15 Versed 2 mg I.V. was administered by Mason Witt RN; for sedation; 14:56:24 Fentanyl 100 mcg I.V. was administered by Mason Witt RN; for sedation; 15::19 Zero performed for pressure channel P1 15::25 Fentanyl 100 mcg I.V. was administered by Mason Witt RN; for sedation; 15:03:30 Versed 2 mg I.V. was administered by Mason Witt RN; for sedation; 15:06:42 Procedure started. 15:06:46 Local anesthetic to left femerol artery with Lidocaine 2% by Klaus Moody MD.INITIAL ACCESS ONLY 15:08:22 Versed 1 mg I.V. was administered by Mason Witt RN; for sedation; 15:09:35 A 6 Fr Mid-Length sheath was inserted into the Left Femoral artery 15:10:06 6 Fr AR 2 guide catheter was inserted over the wire 15:10:52 Heparin Bolus 5000 units I.V. was administered by Mason Witt RN; for anticoagulation; 15:12:50 WHISPER wire advanced. 15:12:55 Wire advanced across lesion. 15:14:22 Place stent Inflation Number: 1 A CAM OTW 3.5 x 26 stent ([id number]) was prepped and advanced across the Prox RCA . The stent was deployed at 14 GRISEL for 0:30 (min:sec) . 15:15:22 Stent catheter was removed intact over wire. 15:15:32 Wire removed. 15:15:33 Guide catheter removed. 15:15:35 Sheath upsized to a 6 Fr Short. 15:15:46 Sheath removed intact; hemostasis achieved with Exoseal to the Left Femoral artery. 15:15:48 Procedure ended.(Physican Out) 15:16:36 Fluoroscopy time 01.50 minutes. 15:16:40 Flurop Dose total: 283 15:16:40 Fluoroscopy dose: 283 mGy 15:16:50 Contrast amount:Isovue 300 30ml. 15:16:52 Maximum allowable dose exceeded? No. 15:16:52 Sharps counted by scrub and verified by R.N. 15:16:53 Insertion/operative site no bleeding no hematoma. 15:16:55 Post-op/insertion site Left Femoral artery dressed using a 4 x 4 and Tegaderm. 15:17:01 Post left femerol artery:stable, soft, clean and dry 15:17:12 Post Procedure Pulses reassessed and unchanged 15:17:14 Post-procedure physical assessment completed. ASA score P 2 - A patient with mild systemic disease as per Klaus Moody MD. 15:17:15 Post procedure rhythm: unchanged. 15:17:18 Estimated blood loss: 10 ml 15:17:19 Post procedure instruction explained to patient.Patient verbalizes understanding. 15:17:19 Patient needs reinforcement of post procedure teaching. 15:21:51 Procedure and supply charges have been captured, reviewed, submitted and are correct. 15:21:53 Procedure Complication : No complications 15:21:57 Vital chart was stopped 15:21:58 See physician's report for complete and final results. 15:21:59 Report given to Pre/Post Procedure Room. 15:22:01 Patient transfered to Pre/Post Procedure Room with Stretcher. 15:22:03 Procedure ended. 15:22:03 Full Disclosure recording stopped 15:22:09 End room use (Document Last) Intervention Summary Intervention Notes Time ActionType Lesion and Equipment Action# Pressure Duration Attributes Used 15:14:22 Place stent Prox RCA CAM OTW 3.5 1 14 00:30 x 26 stent ([id number]) Device Usage Item Name Manufacture Quantity Catalog Hospital Part Current Mini [facility] Lot# / Number Charge Number Stock Stock Serial# Code ACIST Syringe Acist 1 02544 282961 935561 451154 20 (85927) Medical Systems Inc Bag Decanter Microtek 1 2001S 031550 60661 771572 5 (2001S) Medical Inc. Medline Cath Medline 1 [id number] 377293 57604 478824 5 Pack ([id number]) ACIST Hand Acist 1 66212 782558 430908 508136 5 Control Medical (32000) Systems Inc ACIST Acist 1 21200 735746 093334 341129 5 Manifold Medical (93163) Systems Inc Tegaderm 4 x 3M 1 1626W 167360 094556 166197 5 4 (1626W) EMERALD Guide Cardinal 1 502455 082240 590880 010097 5 Wire Health (502455) SHEATH 6FR Cardinal 1 [id number] 795775 415280 778732 1 Brite Tip Health 35cm (804006L) WHISPER 300cm Pack 1 [id number] 059775 828515 135003 5 guide wire Vascular (5552713MD) SHEATH 6FR Terumo 1 OWR952 674655 195053 802822 40 Anderson (PJB371) EXOSEAL 6Fr Cardinal 1 EX600 039906 294110 412159 10 (EX600) Health GUIDE 6FR AR Medtronic 1 HT0ND99 959539 03587 412247 1 2.0 catheter (HC4DV10) CAM OTW 3.5 Medtronic 1 [id number] 965289 8997202 141399 5 [id number] x 26 stent ([id number]) INFLATOR Merit 1 TM2104 462309 014004 109133 15 [facility] (WN2927) Signature Audit [place] [facility] Time Signature Unsigned Intra-Procedure 03/25/2019 Guzman Borrego 3:23:02 PM RT(R) Signatures Performing Physician : Signature : Klaus Moody MD Date : Time : Monitor : Guzman Borrego RT Signature : Date : Time : Nurse : Mason Witt Signature : RN Date : Time : [facility] [address] [place] [address]
[~2019-03-25 11:59] MED LIST: ADCIRCA20 MG PO; AMBIEN10 MG PO; BAYER CHEWABLE81 MG PO; CETIRIZINE HCL5 MG PO; ELAVIL10 MG PO; LISINOPRIL10 MG PO; NORVASC5 MG PO; PLAVIX75 MG PO; REGLAN5 MG PO; XANAX0.5 MG PO
[2019-03-25 12:41] LABS: BASOPHILS 0.3 % (0-2); EOSINOPHILS 0 % (0-7); HEMATOCRIT 46.2 % (42.0-54.0); HEMOGLOBIN 16.3 g/dL (13.5-17.5); IMMATURE GRANULOCYTES 0.3 % (0-5); LYMPHOCYTES 13.8 % (15-50); MCH 30.5 pg (26.0-34.0); MCHC 35.3 g/dL (31.0-37.0); MCV 86.5 fL (80.0-100.0); MEAN PLATELET VOLUME 10.4 fL (7.4-10.4); MONOCYTES 11.7 % (2-11); NEUTROPHILS 73.9 % (40-80); PLATELET COUNT 162 10x3/uL (130-400); RBC 5.34 10x6/uL (4.20-6.10); WBC 6.4 10x3/uL (4.8-10.8)
[2019-03-25 12:53] LABS: CALC OSMOLALITY 274 mosm/kg (275-300); CALCIUM 8.4 mg/dL (8.5-10.1); CARBON DIOXIDE 27.2 mmol/L (21.0-32.0); CHLORIDE - SERUM 103 mmol/L (98-107); CREATININE - SERUM 0.9 mg/dL (0.6-1.3); GLUCOSE 93 mg/dL (74-106); POTASSIUM - SERUM 3.9 mmol/L (3.5-5.1); SODIUM 137 mmol/L (136-145); UREA NITROGEN 16 mg/dL (7-18); eGFR NON AFRICAN AMERICAN 90 mL/min (90-120)
--- NOTE | 2019-03-25 15:58 | NUR ---
DRESSING CDI TO RIGHT GROIN, AREA IS SOFT AND NONTENDER. PEDAL PULSES PALPABLE. PT IS ALERT AND DENIES ANY C/O PAIN OR NAUSEA. VSS. CALL LIGHT IN REACH. BED LOCKED AND LOW, SIDE RAILS UP X2. NO FAMILY AT BEDSIDE.
--- NOTE | 2019-03-25 16:10 | NUR ---
SANDWICH AND PO FLUIDS AT BEDSIDE. DRESSING CDI, PEDAL PULSES PALPABLE. VSS. HOB FLAT, NO FAMILY AT BEDSIDE, CALL LIGHT IS IN REACH.
--- NOTE | 2019-03-25 16:54 | NUR ---
PT ALERT, TEXTING ON PHONE. HAS AMY SANDWICH WITH NO C/O NAUSEA. DRESSING CDI TO RIGHT GROIN, PEDAL PULSES PALPABLE. VSS. PT DENIES NEEDS AT THIS TIME.
--- NOTE | 2019-03-25 16:54 | NUR ---
1635 DRESSING CDI TO RIGHT GROIN, AREA IS SOFT AND NONTENDER. PEDAL PULSES PALPABLE. HOB FLAT. VSS. RESP WITH EASE ON ROOM AIR.
--- NOTE | 2019-03-25 17:42 | NUR ---
PT VISITING WITH FRIEND IN THE ROOM. HOB IS FLAT. DRESSING CDI, PEDAL PULSES PALPABLE. PT DENIES NEEDS AT THIS TIME. VSS.
--- NOTE | 2019-03-25 18:33 | NUR ---
1817 PT CALLED NURSE, REQUESTED PAIN MEDICATION FOR RIGHT GROIN PAIN. HEMATOMA NOTED AT SITE. PRESSURE HELD TO SITE AND FEMSTOP PLACED WITH PRESSURE AT 100, AREA MARKED AND WILL CONTINUE TO MONITOR. PEDAL PULSES PALPABLE. 1834 ORDER RECEIVED NOR NORCO 10 MG PO Q 4 HOURS PRN PAIN AND FIRST DOSE GIVEN. DR SCHUMACHER NOTIFIED OF BLEEDING AT CATH SITE AND ORDER RECEIVED TO ADMIT PT FOR OBSERVATION.
--- NOTE | 2019-03-25 19:03 | NUR ---
1849 NO INCREASE IN MARKED HEMATOMA. PEDAL PULSES PALPABLE. FEMSTOP IN PLACE, HOB IS FLAT. NSR, DENIES ANY C/O CHEST PAIN. 1899 FEMSTOP CDI, NO INCREASE IN HEMATOMA. PEDAL PULSES PALPABLE. HOB IS FLAT, PT DENIES ANY C/O AT THIS TIME.
--- NOTE | 2019-03-25 19:38 | NUR ---
1929 FEMSTOP PRESSURE WEANED BY 15 MM HG. NO INCREASE IN HEMATOMA NOTED. PEDAL PULSES PALPABLE. HOB IS FLAT. PT STATES PAIN LEVEL A TOLERABLE 5/10 AT THIS TIME. DENIES NEEDS. NSR, RATE 60, BP IS 118/75. SAT IS 95% ON ROOM AIR.
--- NOTE | 2019-03-25 19:50 | NUR ---
REPORT CALLED TO GAB LUNA RN. FEMSTOP PRESSURE WEANED BY 15 MM HG WITH NO INCREASE IN HEMATOMA NOTED. PEDAL PULSES PALPABLE. HO IS FLAT, VSS. PT TRANSFERRED TO ROOM 2307 VIA STRETCHER.
--- NOTE | 2019-03-25 20:10 | NUR ---
PT RECIEVED AND TRANSFERRED TO BED, LYING IN SUPINE POSITION, ALERT X4, L PIV SL IN PLACE, FEM STOP TO LEFT GROIN, PEDAL PULSES +2, NO DISTRESS NOTED
--- NOTE | 2019-03-25 20:30 | NUR ---
FEMSTOP PRESSURE REDUCED TO 68, PEDAL PULSES +2, NO DISTRESS
--- NOTE | 2019-03-25 20:45 | NUR ---
FEMSTOP PRESSURE REDUCED TO 60, PEDAL PULSES +2, NO BLEEDING NOTED
--- NOTE | 2019-03-25 21:00 | NUR ---
FEMSTOP REDUCED TO 50, PEDAL PULSES GOOD, NO BLEEDING
--- NOTE | 2019-03-25 21:20 | NUR ---
FEMSTOP PRESSURE REDUCED TO 40, PEDAL PULSES +2, NO BLEEDING NOTED
--- NOTE | 2019-03-25 21:45 | NUR ---
FEMSTOP PRESSURE REDUCED TO 30, NO BLEDING NOTED, PT ALERT EATING ICE CREAM, PEDAL PULSES +2
--- NOTE | 2019-03-25 22:12 | NUR ---
PT ALERT, WATCHING TV, REMAINS IN SUPINE POSITION WITH HOB FLAT, PEDAL PULSES +2, FEM STOP PRESSURE REDUCED TO 20
--- NOTE | 2019-03-25 22:20 | NUR ---
FEMSTOP PRESSURE REDUCED TO 10, NO BLEEDING NOTED, PEDAL PULSES +2
--- NOTE | 2019-03-25 22:35 | NUR ---
FEMSTOP D/C'D, NO BLEEDING, PEDAL PULSES +2, PT RESTING QUIETLY
[2019-03-26] VITALS (7 sets, daily range): BP systolic 100–135; BP diastolic 45–87
--- NOTE | 2019-03-26 00:30 | NUR ---
PT RESTING QUIETLY, PEDAL PULSES +2, NO DISTRESS
--- NOTE | 2019-03-26 02:30 | NUR ---
PT VOIDED IN URINAL WITHOUT DIFFICULTY, UP TO SIDE OF BED, NO C/O
--- NOTE | 2019-03-26 05:07 | NUR ---
PT SLEEPING, PEDAL PULSES +2, NO BLEEDING NOTED AT FEM SITE LEFT GROIN
--- NOTE | 2019-03-26 07:19 | NUR ---
REPORT RECIEVED, SHIFT ASSESSMENT COMPLETE, PT IS ALERT AND ORIENTED, ON RA WITH 98% O2 SAT. ALL PPP, VSS, CALL LIGHT IN REACH
--- NOTE | 2019-03-26 08:00 | NUR ---
DR. MORELOS AT BEDSIDE, OK TO DC PT AFTER NAGI AQUINO,
--- NOTE | 2019-03-26 08:18 | HP ---
PATIENT: MATIAS HAGEN MEDICAL RECORD: [id number] ACCOUNT: [id number] LOCATION:[facility] D.2307 : 51 ADMISSION DATE: 03/25/19 PCP: CLYDE COYLE MD HISTORY AND PHYSICAL EXAMINATION HISTORY OF PRESENT ILLNESS: A 63-year-old gentleman with known history of coronary artery disease, status post intervention. He continued to have angina despite revascularization. LAD, had a known residual disease of the right of 80%, is being brought to dental laboratory technician for revascularization of the right coronary. PAST MEDICAL HISTORY: Includes; 1. History of coronary artery disease. 2. Hypertension. 3. Hyperlipidemia. PHYSICAL EXAMINATION: GENERAL: Pleasant gentleman, in no acute distress, appears stated age. HEENT: Normocephalic, atraumatic. NECK: No bruits noted. HEART: Regular. LUNGS: Love clear. ABDOMEN: Soft, nontender. EXTREMITIES: Pulses 2+. No edema. IMPRESSION: Plan intervention of the CAD of right momentarily. TRANSINT:[id number] Voice Confirmation ID: [id number] DOCUMENT ID: [id number] ELA MORELOS MD at 0818 CC: [id number] DICTATION DATE: 03/25/19 1309 PERSONNEL SUPERVISOR: 03/25/19 1349 [address] [place] [address]
--- NOTE | 2019-03-26 08:18 | OP ---
PATIENT NAME: MATIAS HAGEN MEDICAL RECORD: [id number] :51 [facility] D.2307 ADMISSION DATE: SURGEON: ELA MORELOS MD DATE OF OPERATION: 03/25/2019 PROCEDURE: PTCA and stent. DESCRIPTION OF PROCEDURE: After long 6-[place]an sheath was placed in left femoral artery due to marked tortuosity of the femoral and iliac system, an AR2 guiding catheter provided excellent guide catheter support followed by 300 cm Whisper wire was placed along diffuse restenosed right coronary up to 80%. Next, stent deployed was 3.5 x 26 mm Roland drug-eluting stent placed across the incomplete area and inflated up to 14 atmospheres for 40 seconds. Final angiography shows excellent resolution of a diffuse 80% stenosis with no significant residual. CARLOS flow was 3 throughout the procedure. The patient was previously on Plavix. Heparin was used during the case. Sheath was closed with ExoSeal device. TRANSINT:[id number] Voice Confirmation ID: [id number] DOCUMENT ID: [id number] ELA MORELOS MD at 0818 CC: [id number] DICTATION DATE: 03/25/19 1529 BUILDING REPAIR MAINTENANCE SUPERVISOR: 03/25/19 1955 [facility] [address] [place] [address]
[2019-03-26 08:39] LABS: BASOPHILS 0.3 % (0-2); EOSINOPHILS 0 % (0-7); HEMATOCRIT 46.1 % (42.0-54.0); HEMOGLOBIN 16.1 g/dL (13.5-17.5); IMMATURE GRANULOCYTES 0.1 % (0-5); LYMPHOCYTES 10.6 % (15-50); MCH 30.6 pg (26.0-34.0); MCHC 34.9 g/dL (31.0-37.0); MCV 87.5 fL (80.0-100.0); MEAN PLATELET VOLUME 10.9 fL (7.4-10.4); MONOCYTES 10.8 % (2-11); NEUTROPHILS 78.2 % (40-80); PLATELET COUNT 151 10x3/uL (130-400); RBC 5.27 10x6/uL (4.20-6.10); RDW 13.1 % (11.5-14.5)
--- NOTE | 2019-03-26 09:27 | NUR ---
LEFT FA PIC DC'D CATH INTACT, DC INSTRUCTIONS GIVEN, DC'D AT THIS TIME
== END 2019-03-26 09:30 | disposition home or self-care (01) ==
LOC: D.CATH 11:59 → D.ICU 19:50 → D.CATH 03-26 09:30
PROVIDERS: ATTEND Internal Medicine Interventional Cardiology
DX: I25.119 Atherosclerotic heart disease of native coronary artery with unspecified angina pectoris (principal); T82.855A Stenosis of coronary artery stent, initial encounter; Z01.812 Encounter for preprocedural laboratory examination; I10 Essential (primary) hypertension; E78.5 Hyperlipidemia, unspecified

== ENCOUNTER 2019-04-09 00:50 | Emergency (ER) | payer MEDICARE ==
[~2019-04-09] VITALS: Ht 198.1 cm; Wt 109.1 kg
[2019-04-09 00:56] VITALS: Ht 198.1 cm; Wt 109.1 kg
[2019-04-09] MEDS ORDERED: AMBIEN10 MG PO (00:59)
[2019-04-09 01:26] LABS: BASOPHILS 0.2 % (0-2); EOSINOPHILS 0 % (0-7); HEMATOCRIT 44.6 % (42.0-54.0); IMMATURE GRANULOCYTES 0.3 % (0-5); MCH 30.7 pg (26.0-34.0); MCHC 35.9 g/dL (31.0-37.0); MCV 85.6 fL (80.0-100.0); MEAN PLATELET VOLUME 10.4 fL (7.4-10.4); NEUTROPHILS 70.5 % (40-80); PLATELET COUNT 156 10x3/uL (130-400); RBC 5.21 10x6/uL (4.20-6.10); RDW 13.2 % (11.5-14.5); WBC 5.8 10x3/uL (4.8-10.8)
[2019-04-09 01:35] LABS: APPEARANCE CLEAR (CLEAR); COLOR YELLOW (YELLOW)
[2019-04-09 01:36] LABS: BILIRUBIN NEGATIVE (NEGATIVE); EPITHELIAL CELLS 0-5 /hpf (0-5); GLUCOSE NEGATIVE (NEGATIVE); KETONE NEGATIVE (NEGATIVE); NITRITE NEGATIVE (NEGATIVE); PROTEIN 1+ mg/dL (NEGATIVE); RED CELLS - URINE NONE SEEN /hpf (0-5); SPECIFIC GRAVITY 1.015 (1.005-1.020); UROBILINOGEN NORMAL (NORMAL); WHITE CELLS - URINE NSEEN /hpf (0-5)
[2019-04-09 02:00] LABS: ALBUMIN 3.7 g/dL (3.4-5.0); ALKALINE PHOSPHATASE 62 U/L (46-116); ALT (SGPT) 22 U/L (10-68); BILIRUBIN - TOTAL 0.56 mg/dL (0.2-1.3); CALC OSMOLALITY 274 mosm/kg (275-300); CALCIUM 8.8 mg/dL (8.5-10.1); CARBON DIOXIDE 28.3 mmol/L (21.0-32.0); CHLORIDE - SERUM 100 mmol/L (98-107); CREATININE - SERUM 1.2 mg/dL (0.6-1.3); GLUCOSE 124 mg/dL (74-106); POTASSIUM - SERUM 3.7 mmol/L (3.5-5.1); PROTEIN - SERUM 7.4 g/dL (6.4-8.2); SODIUM 136 mmol/L (136-145); UREA NITROGEN 18 mg/dL (7-18); eGFR NON AFRICAN AMERICAN 64 mL/min (90-120)
[2019-04-09 02:02] LABS: AMYLASE - SERUM 55 U/L (25-115); LIPASE 344 U/L (73-393); TROPONIN-I < 0.017 ng/mL (0.000-0.060)
[2019-04-09 03:26] VITALS: BP 128/78
== END 2019-04-09 03:25 | disposition home or self-care (01) ==
LOC: D.ER 00:50
PROVIDERS: Family Medicine
DX: K29.70 Gastritis, unspecified, without bleeding (principal)